=== PATIENT | male | born 1990 | race Two or more races ===

== ENCOUNTER 2016-12-14 18:27 | Emergency (ER) | payer OTHER ==
[~2016-12-14] VITALS: Ht 177.8 cm; Wt 77.3 kg
[2016-12-14] MEDS ORDERED: KETOROLAC TROMETHAMINE 60 MG/2 ML VIAL IM ONE (21:45)
[2016-12-14 23:02] VITALS: BP 138/88
== END 2016-12-14 23:05 | disposition home or self-care (01) ==
LOC: EMS 18:38
DX: S13.4XXA Sprain of ligaments of cervical spine, initial encounter (principal); M25.551 Pain in right hip; V59.50XA Passenger in pick-up truck or van injured in collision with unspecified motor vehicles in traffic accident, initial encounter; Y93.89 Activity, other specified; Y92.89 Other specified places as the place of occurrence of the external cause; Y99.8 Other external cause status
CPT/HCPCS: 72040; 72070; 96372; 99284; J1885